=== PATIENT | female | born 1980 | race Caucasian/White ===

== ENCOUNTER → 2017-10-26 13:22 | Outpatient (CLI) | payer OTHER, SELFPAY ==
[2017-10-26 16:02] LABS: Chlamydia Trachomatis by PCR Negative (Negative); Neisserai gonorrhoeae by PCR Negative (Negative); Probe Check PASS; Sample Adequacy Control PASS; Specimen Processing Control PASS
[2017-10-28 14:19] LABS: HPV APTIMA, High Risk Negative (Negative)
== END ==
PROVIDERS: Visit Provider Obstetrics & Gynecology
DX: Z12.4 Encounter for screening for malignant neoplasm of cervix (principal); Z11.3 Encounter for screening for infections with a predominantly sexual mode of transmission
CPT/HCPCS: 87491; 87591; 88175; G0145

== ENCOUNTER → 2017-11-18 08:02 | Outpatient (CLI) | payer OTHER, SELFPAY ==
--- NOTE | 2017-11-18 08:05 | BI_ITS ---
MAMMOGRAPHY - BILATERAL SCREENING REASON FOR EXAM: Female, 37 years old. Routine annual screening examination. PERTINENT HISTORY: Non-contributory. Remote left excisional breast biopsy. TECHNIQUE: Digital bilateral breast teresa (3D mammographic acquisition) in the CC and MLO projections. 2-D mediolateral oblique (MLO) and craniocaudad (CC) views of both breasts were obtained. CAD: Full Field Digital Mammography with Computer Added Detection was performed. COMPARISON: Comparison is made with prior examination dated October 23, 2015. FINDINGS: Breast Composition: The breasts are extremely dense, which lowers the sensitivity of mammography. There are no dominant masses or suspicious calcifications. No other significant abnormalities are identified. There has been no significant change since the prior study. BI/SCREENING MAMM (CAD), BILAT IMPRESSION: Stable bilateral screening mammogram. Yearly follow-up mammogram recommended. (A) ASSESSMENT CATEGORY: BIRADS Category 1: Negative. A letter regarding these results will be sent to the patient by the facility within 30 days. Approximately 10% of breast cancers are not detected by mammography. A normal mammogram should not delay biopsy of a clinically suspicious abnormality. [id number] Electronically Signed: Marvin Zhu MD at 8:58 EDT Tel [phone], Service support ,
== END ==
PROVIDERS: Family Provider Internal Medicine; PCP Internal Medicine; Visit Provider Obstetrics & Gynecology
DX: Z12.31 Encounter for screening mammogram for malignant neoplasm of breast (principal)
CPT/HCPCS: 77063; 77067

== ENCOUNTER → 2019-07-21 13:40 | Outpatient (CLI) | payer OTHER, SELFPAY | PROVIDERS: PCP Internal Medicine; Visit Provider Obstetrics & Gynecology | DX: Z12.4 Encounter for screening for malignant neoplasm of cervix (principal); Z11.3 Encounter for screening for infections with a predominantly sexual mode of transmission ==

== ENCOUNTER → 2020-02-27 | Outpatient (CLI) ==
[2020-03-01 20:08] LABS: HSV 1 By PCR Negative (Negative)
[2020-03-01 21:35] LABS: HSV 2 By PCR Negative (Negative)
== END | disposition home or self-care (01) ==
PROVIDERS: Student in an Organized Health Care Education/Training Program
DX: Z11.3 Encounter for screening for infections with a predominantly sexual mode of transmission (principal)
CPT/HCPCS: 87529

== ENCOUNTER → 2021-09-03 | Outpatient (CLI) | payer BC, SELFPAY ==
[2021-09-10 15:34] LABS: HPV APTIMA, High Risk Negative (Negative)
== END | disposition home or self-care (01) ==
LOC: LABSPEC 13:20
PROVIDERS: PCP Internal Medicine; Visit Provider Obstetrics & Gynecology
DX: Z12.4 Encounter for screening for malignant neoplasm of cervix (principal)
CPT/HCPCS: 87624; 88175; G0145

== ENCOUNTER → 2021-10-04 | Outpatient (CLI) | payer BC, SELFPAY ==
--- NOTE | 2021-10-04 09:15 | BI_ITS ---
MAMMOGRAPHY - BILATERAL SCREENING REASON FOR EXAM: Female, 41 years old. Routine annual screening examination. PERTINENT HISTORY: Non-contributory. Remote left excisional biopsy for fibroadenomas. TECHNIQUE: Digital bilateral breast tali (3D mammographic acquisition) in the CC and MLO projections. 2-D mediolateral oblique (MLO) and craniocaudad (CC) views of both breasts were obtained. CAD: Full Field Digital Mammography with Computer Added Detection was performed. COMPARISON: Screening mammogram from 11/18/2017. FINDINGS: Breast Composition: The breasts are extremely dense, which lowers the sensitivity of mammography. There are no dominant masses or suspicious calcifications. Asymmetry in the left posterior breast, posterior depth, stable since 11/18/2017 and likely a benign finding given temporal stability. No other significant abnormalities are identified. There has been no significant change since the prior study. BI/SCRN MAMM (CAD)W/TALI BILAT IMPRESSION: Stable bilateral screening mammogram. Yearly follow-up mammogram recommended. (A) ASSESSMENT CATEGORY: BIRADS Category 2: Benign. A letter regarding these results will be sent to the patient by the facility within 30 days. Approximately 10% of breast cancers are not detected by mammography. A normal mammogram should not delay biopsy of a clinically suspicious abnormality. [id number] Electronically Signed: Kennedy Moser, at 16:34 EDT ,
== END | disposition home or self-care (01) ==
LOC: OPBI 09:14
PROVIDERS: PCP Internal Medicine; Visit Provider Obstetrics & Gynecology
DX: Z12.31 Encounter for screening mammogram for malignant neoplasm of breast (principal)
CPT/HCPCS: 77063; 77067

== ENCOUNTER → 2022-08-11 | Outpatient (CLI) | payer BC, SELFPAY ==
[2022-08-11 12:38] LABS: Absolute Neutrophil Count 4.7 X10^3/uL (2.0-7.7); Basophil# 0.05 X10^3/uL; Basophil% 0.7 % (0-1); Eosinophil# 0.18 X10^3/uL; Eosinophils% 2.5 % (0-5); Hematocrit 40.5 % (37-47); Hemoglobin 13.3 g/dL (12.0-15.0); Lymphocyte % 26.1 % (19-41); Mean Corp Hgb Conc 32.8 g/dL (32-36); Mean Corpuscular Hgb 30.9 pg (27.0-32.0); Mean Platelet Vol. 10.2 fl (6.2-12.0); Monocyte# 0.43 X10^3/uL; Monocyte% 5.9 % (0-10); NRBC Flagged by Analyzer 0 % (0-5); Neutrophil % 64.5 % (47-70); Platelet Count 286 K/mm3 (150-450); RBC Distribution Width CV 12.2 % (11.6-14.6); RBC Distribution Width SD 42.9 fl (35.1-43.9); Red Blood Count 4.31 M/mm3 (4.2-5.4); White Blood Count 7.3 K/mm3 (4.4-11.0)
[2022-08-11 13:03] LABS: Vitamin B12 397 pg/mL (211-911); Vitamin D,25 Hydroxy 41.7 ng/mL
[2022-08-11 13:09] LABS: ALB/GLOB Ratio 1.3 RATIO (0.9-2.4); AST(SGOT) 18 U/L (15-37); Alanine Aminotransfer ALT/SGPT 18 U/L (13-56); Albumin, Serum 3.8 g/dL (3.2-5.0); Alkaline Phosphatase 46 U/L (45-117); Anion Gap 4 (5-15); BUN 9 mg/dL (7-18); Calcium,Total 8.4 mg/dL (8.5-10.1); Chloride 107 mmol/L (98-107); Cholesterol 160 mg/dL (200); Creatinine, Serum 0.75 mg/dL (0.55-1.02); EST Glomerular Filtration Rate 90 mL/min (>60); Est Glom Filt Rate - Afr Amer 109 mL/min (>60); Free T3 2.6 pg/mL (2.18-3.98); Glucose 90 mg/dL (74-106); High Density Lipoprotein 49 mg/dL; Potassium 3.6 mmol/L (3.5-5.1); Protein, Total 6.8 g/dL (6.4-8.2); Sodium Level 139 mmol/L (136-145); T4 Free Direct 1.01 ng/dL (0.76-1.46); Thyroid Stim Hormone (TSH) 1.64 uIU/mL (0.358-3.74); Triglycerides 47 mg/dL; Very Low Density Lipoprotein 9 mg/dL (5-40)
== END | disposition home or self-care (01) ==
LOC: LAB 12:00
PROVIDERS: PCP Internal Medicine; Visit Provider Internal Medicine
DX: Z00.00 Encounter for general adult medical examination without abnormal findings (principal); F32.A Depression, unspecified; E55.9 Vitamin D deficiency, unspecified; Z13.220 Encounter for screening for lipoid disorders
CPT/HCPCS: 36415; 80053; 80061; 82306; 82607; 84439; 84443; 84481; 85025

== ENCOUNTER → 2023-11-18 | Outpatient (CLI) | payer MEDICAID, SELFPAY ==
[2023-11-18 11:53] LABS: Free T3 3.4 pg/mL (2.18-3.98); T4 Free Direct 1.06 ng/dL (0.76-1.46)
== END | disposition home or self-care (01) ==
LOC: LAB 10:23
PROVIDERS: PCP Internal Medicine; Referring Provider Internal Medicine; Visit Provider Internal Medicine
DX: F32.A Depression, unspecified (principal); F41.9 Anxiety disorder, unspecified
CPT/HCPCS: 36415; 84439; 84443; 84481

== ENCOUNTER → 2024-01-27 | Outpatient (CLI) | payer MEDICAID, SELFPAY ==
--- NOTE | 2024-01-27 14:12 | BI_ITS ---
MAMMOGRAPHY - BILATERAL DIAGNOSTIC REASON FOR EXAM: Female, 43 years old. Palpable lump in the inferior central portion of the left breast. PERTINENT HISTORY: Non-contributory. TECHNIQUE: Digital bilateral breast teresa (3D mammographic acquisition) in the CC and MLO projections. 2-D mediolateral oblique (MLO) and craniocaudad (CC) views of both breasts were obtained. CAD: Full Field Digital Mammography with Computer Added Detection was performed. COMPARISON: Comparison is made with prior study dated October 04, 2021 and November 18, 2017. FINDINGS: Breast Composition: The breasts are extremely dense, which lowers the sensitivity of mammography. There are no dominant masses or suspicious calcifications. No other significant abnormalities are identified. There has been no significant change since the prior study. BI/DIAG MAMM W/CAD, BILAT IMPRESSION: Stable bilateral diagnostic mammogram. With the patient''s history of a palpable lump in the left breast, sonographic correlation is recommended. ASSESSMENT CATEGORY: BIRADS Category 0: Incomplete. Need additional imaging evaluation. A letter regarding these results will be sent to the patient by the facility within 30 days. Approximately 10% of breast cancers are not detected by mammography. A normal mammogram should not delay biopsy of a clinically suspicious abnormality. Electronically Signed: Marvin Zhu MD at 15:17 EDT ,
--- NOTE | 2024-01-27 14:14 | US_ITS ---
STUDY: ULTRASOUND BREAST - LEFT REASON FOR EXAM: Female, 43 years old. Palpable lump left breast. TECHNIQUE: Axial and longitudinal images of the LEFT breast were performed with a high resolution ultrasound transducer. # OF IMAGES: 21 COMPARISON: Comparison is made with prior mammogram dated January 27, 2024 FINDINGS: LEFT Breast: The medial aspect of the left breast was examined with ultrasound. There is a 7 mm x 9 mm x 4 mm well-defined hypoechoic nodule at the 9:00 position breast at 2 cm from nipple. This most likely represents a fibroadenoma. The patient has a history of prior resection of 2 breast fibroadenomas. US/Breast Limited Unilateral IMPRESSION: 7 mm x 9 mm x 4 mm well-defined hypoechoic nodule at 9:00 position breast at 2 cm from nipple. This corresponds to the palpable lump. This most likely represents a fibroadenoma. Biopsy recommended. ASSESSMENT CATEGORY: BIRADS Category 4: Suspicious - Biopsy Should Be Considered. A letter regarding these results will be sent to the patient by the facility within 30 days. Electronically Signed: Marvin Zhu MD at 10:15 EDT ,
== END | disposition home or self-care (01) ==
LOC: OPBI 14:09
PROVIDERS: PCP Internal Medicine; Referring Provider Obstetrics & Gynecology; Visit Provider Obstetrics & Gynecology
DX: N63.25 Unspecified lump in the left breast, overlapping quadrants (principal)
CPT/HCPCS: 77062; 76642; 77066; G0279

== ENCOUNTER 2024-02-10 11:04 | Day surgery (SDC) | payer MEDICAID, SELFPAY ==
--- NOTE | 2024-02-10 | IMM_PTH ---
PATIENT: CHANCE BARNHART LOC: [facility] [place] U#:[id number] AGE/SX: 43/F ROOM: RE02/10/[address]: Dr. Josh Mckinley MD : 1980 BED: DIS: 02/10/2024 SPEC #: [id number] RECD: 02/11/24 12:15 STATUS: FAISAL REQ #: [id number] RAHEL: 02/10/24 00:[address]: Josh Mckinley DEPT: IMMUNOHISTOCHEMISTRY RECD BY: Alphonse Ruiz ENTERED: 02/11/24 12:15 SP TYPE: IMMUNO OTHR DR: Dr. Génesis Christianson MD Tissues: Left breast, NOS Procedures: SMA (add) CALPONIN-1 (add) KI-67 (add) P53 (add) 34BE12 (add) Pankeratin (initial) P40 (add) CD68 (ADD) PHYSICIAN & INSTITUTION [place] [id number] SPECIMEN INFORMATION: Tissue Source: Left breast lump Clinical Info: Left breast lump Specimen Number: [id number] CPT code: 28740,62139w9 METHODOLOGY: Deparaffinized sections of prefer/formalin-fixed tissue or PAP/DQ stained slides are incubated with monoclonal/polyclonal antibodies/oligonucleotide probes. Localization is made via biotin free immunoperoxidase method. Appropriate controls are performed and reacted as expected. Results on target cell population are indicated in the following table: RESULTS: ANTIBODY / CLONE RESULT Block #2 AE1-3 (AE1/AE3/PCK26) positive 34BE12 (34BE12) positive Calponin-1 (NV258X) positive Actin (1A4) positive P40 (BC28) positive P53 (DO-7) negative (wild type pattern) Ki-67 (30-9) positive, low CD68 (KP-1) positive, positive in the area of previous biopsy site These tests were developed and their performance characteristics determined by [facility]. They may not have been cleared or approved by the U.S. Food and Drug Administration. The FDA has determined that such clearance or approval is not necessary. The above immunohistochemical/dualISH markers are ordered by Dr. Tate Kim and reviewed by the Pathologist. INTERPRETATION: Left breast lump, excisional biopsy: Negative for malignancy. Focal fibrosis consistent with previous biopsy site. CARMINA/ 02/12/2024
[2024-02-10 11:35] VITALS: BP 122/99; PULSE 76; RESP 16; TEMP 36.4; O2SAT 100; BMI 21.9
--- NOTE | 2024-02-10 11:35 | PCM.HP.BLA ---
History and Physical Date of Admission: 02/10/24 Intake Vital Signs 11/17/2408:31 02/01/2414:38 Height 5 ft 2 in 5 ft 2 in Weight: 123 lb 121 lb BMI 22.4 22.1 BP 144/86 H 92/65 Blood Pressure Location Lt brachial Lt brachial Position Sitting Sitting Respiration 17 Pulse 79 68 Pulse Source Monitor Monitor Temp 98.6 F Temp Source Temporal Pulse Oximetry (%) 96 100 Oxygen Delivery Method room air room air Intake Visit Reasons: BIRADS 4 Chief Complaint: birads 4 Is patient in pain?: No Allergies No Known Allergies Allergy (Verified 02/02/24 14:40) Medications ?Medication ?Instructions ?Recorded ?Confirmed ?Type multivitamin (Daily Multi-Vitamin 1 tab PO DAILY 05/29/21 02/02/24 History tablet) trazodone 50 mg tablet See Rx Instructions PO QHS PRN 11/18/23 02/02/24 Rx sleep #60 tabs escitalopram oxalate 5 mg tablet 5 mg PO DAILY #60 tabs 01/29/24 02/02/24 Rx (Lexapro) PFSH Surgical History S/P breast lumpectomy Family History (Updated 02/02/24 @ 14:38 by Urszula Rivera) Father Cancer Social History household members: spouse current occupational status: employed Smoking Status: Never smoker alcohol intake: never substance use type: does not use HPI HPI HPI: Patient is a 43-year-old female here with painful left breast mass. She had excision of 2 fibroadenomas in the same area of the breast years ago. She reports his new 1 has been painful for a few weeks. She has not noted any nipple discharge. The painful area is directly beneath the scar from her prior excision ROS General General: No weight change, appetite, fatigue, colon cancer, breast cancer or weakness HEENT HEENT: No difficulty swallowing, eye injury, eye surgery, swollen glands or hoarseness Endo Endocrine: No thyroid disease, diabetes mellitus, thyroid cancer, Hair loss, heat intolerance or cold intolerance Skin Skin: No rash or changing moles Breast Breast: Yes left breast lump, abnormal mammogram and abnormal US; No right breast lump, nipple discharge, breast pain or breast enlargement Musc Musculoskeletal: No back problems, arthritis, rheumatoid arthritis, gout or joint pain Cardio Cardiovascular: No murmur, pacemaker, heart disease, atrial fibrillation, high blood pressure, heart attack, heart stent, palpitations, shortness of breat with exertion or chest pain Psych Psychiatric: Yes depression and anxiety; No hearing voices Resp Respiratory: No shortness of breath, No sleep apnea, No cough, No COPD, No asthma, No emphysema and No wheezing Gastro Gastrointestinal: No abdominal pain, No nausea or vomiting, No diarrhea, No constipation, No blood in stool, No acid reflux, No hemorrhoids, No ulcers, No gallbladder problem and No black,tarry stools Juan Carlos Hematologic: No blood thinners, No blood disorders, No bleeding, No anemia and No blood clots Neuro Neurologic: No system reviewed and no additional complaints, except as documented, No as per HPI, No abnormal gait, No abnormal hearing, No abnormal movements, No abnormal speech, No behavioral changes, No burning sensations, No confusion, No convulsions, No disequilibrium, No dizziness, No localized weakness, No frequent falls, No headache(s), No lack of coordination, No loss of vision, No memory loss, Yes numbness, No other visual disturbances, No radicular pain, No restless legs, No sensory deficit, No syncope, Yes tingling, No tremor(s), No weakness and No other Exam Const General: cooperative Orientation: alert and oriented x3 HENMT Head: normal to inspection Neck Neck: normal visual inspection and full ROM Chest Chest palpation & inspection: normal inspection of the chest Resp Effort & Inspection: normal respiratory effort Auscultation: clear to auscultation bilaterally Cardio Rate: regular rate Rhythm: regular rhythm GI Inspection: non-distended Palpation: soft and nontender Skin General: no rashes or lesions noted Neuro General: patient alert and patient oriented x3 Extrem General: full ROM Psych Appearance: grossly normal Mental Status: mental status grossly normal Assessment and Plan Assessment and Plan (1) Left breast lump: Status: Acute Qualifiers: Breast mass location: lower inner quadrant Qualified Code(s): N63.24 - Unspecified lump in the left breast, lower inner quadrant Plan: The patient has a left breast lump which is painful. It is directly at her incision site from her prior fibroadenoma excision. I discussed excising and performing excisional biopsy as it is painful to palpation. Patient is agreeable. I discussed the risks of bleeding and infection. Patient understands the risks and is willing to proceed. She will be scheduled for excisional biopsy of this breast mass Josh Mckinley MD Pager: [facility] [address] [place] [address], [address] [place] [phone] Office: I have examined the patient and the H&P has been reviewed. There are no clinical changes since date of exam.
--- NOTE | 2024-02-10 11:38 | PCM.PRE.AN2 ---
ASA Classification* ASA Classification ASA Classification: 2 Assessment & Plan Anesthesia* Anesthesia Assessment Anesthesia Assessment: Discussed sedation and/or anesthesia options, risks, benefits, and alternatives with patient/parents/legal guardian/POA. Questions invited. The patient/parents/legal guardian/POA seems to understand and agrees to proceed with anesthesia plan. Reviewed the physical assessment, medical history, allergy history and patient home medications list prior to surgery/procedure/anesthetic and documented any changes. Performed airway and anesthesia risk assessments. Anesthesia Type Anesthesia Type: MAC (see written pre anesthesia record for full assessment) Anesthesia Focused Assessment* Airway Assessment Mouth opens: >3 cm Mallampati Score: II Focused Labs Anesthesia Preop lab: CBC WBC 7.3 K/mm3 (4.4-11.0) 08/11/22 12:04 RBC 4.31 M/mm3 (4.2-5.4) 08/11/22 12:04 Hgb 13.3 g/dL (12.0-15.0) 08/11/22 12:04 Hct 40.5 % (37-47) 08/11/22 12:04 Plt Count 286 K/mm3 (150-450) 08/11/22 12:04 CHEMISTRY Potassium 3.6 mmol/L (3.5-5.1) 08/11/22 12:04 Sodium 139 mmol/L (136-145) 08/11/22 12:04 BUN 9 mg/dL (7-18) 08/11/22 12:04 Creatinine 0.75 mg/dL (0.55-1.02) 08/11/22 12:04 Glucose 90 mg/dL (74-106) 08/11/22 12:04 TSH 1.40 uIU/mL (0.358-3.74) 11/18/23 10:35 COAG Urine Test Negative Negative 05/01/16 12:20 Pre-Assessment Diagnosis/Proposed Procedure Planned Operative Procedure(s): (L) Excision, Breast Mass or Biopsy Anesthesia History 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 When Was Last Pacemaker Check QUESTION #4 FULL TEXT: You/Your Family Experience fever (hyperthermia) with Anesthesia Last Oral Intake Last Oral intake: Last Oral Intake NPO since Meds taken in AM with sips of water? 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 Female Yes 02/04/24 14:28 HX of Motion Sickness Yes 02/04/24 14:28 HX of N/V After Surgery No 02/04/24 14:28 Non-Smoker Yes 02/04/24 14:28 Duration of Surgery greater No 02/04/24 14:28 than 60 minutes Number of Risk Factors 3 02/04/24 14:28 PONV Score Moderate Risk 02/04/24 14:28 Height & Weight Height & Weight: Anesthesia: Height & Weight Height 5 ft 2 in 02/02/24 14:38 Respiratory Assessment Respiratory Assessment - rope twisting machine operator: Respiratory Tract Infection Hx - rope twisting machine operator Hx Respiratory Tract Infection No 02/04/24 14:28 STOP Sleep Apnea STOP Sleep Apnea - rope twisting machine operator: STOP Sleep Apnea - rope twisting machine operator Hx Hypertension No 02/04/24 14:28 Hx Sleep Apnea No 02/04/24 14:28 CPAP No 05/01/16 14:47 BIPAP Do you snore loudly (louder No 02/04/24 14:28 than talking or can be heard Do you often feel tired/ No 02/04/24 14:28 fatigued/ sleepy during daytime? Has anyone observed you stop No 02/04/24 14:28 breathing during sleep? STOP Results Negative 02/04/24 14:28 QUESTION #5 FULL TEXT : Do you snore loudly (louder than talking or can be heard through closed doors)? 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 Specify any problems Hx of Preganancy in last 3 N/A 02/04/24 14:28 Months Nurse Filling Out Transfusion NBUCHER 02/04/24 14:28 & Questions: Date: 02/04/24 02/04/24 14:28 Time: 14:29 02/04/24 14:28 Patient unable to answer at this time (ie. confused, unrespo /Reproduction History /Reproductive History - rope twisting machine operator: /Reproductive Hx- rope twisting machine operator Hx Now No 02/04/24 14:28 Gestational Age (in weeks): EDC: Hx Hx Para Hx Section SAB No 02/04/24 14:28 Active Medications Active Medications: Current Medications Generic Name Dose Route Start Last Admin Trade Name Freq PRN Reason Stop Dose Admin Cefazolin Sodium 2 gm/ Sodium 110 mls @ 150 mls/hr 02/10/24 13:00 Chloride IV 02/10/24 13:43 PREOP ONE Lactated Ringer's 1,000 mls @ 15 mls/hr 02/10/24 11:15 IV .Q48H DARION PFSH Medical History Loss of hearing Wears contact lenses Wears glasses Anxiety Migraine headache Non-smoker Home Medications ?Medication ?Instructions ?Recorded ?Last Taken ?Type multivitamin (Daily Multi-Vitamin 1 tab PO DAILY 05/29/21 Unknown History tablet) escitalopram oxalate 5 mg tablet 5 mg PO DAILY #60 tabs 02/03/24 Unknown Rx (Lexapro) Allergy/AdvReac Type Severity Reaction Status Date / Time No Known Allergies Allergy Verified 02/04/24 14:27 Family History Father Cancer Surgical History S/P breast lumpectomy Social History household members: spouse current occupational status: employed Smoking Status: Never smoker alcohol intake: never substance use type: does not use Review of Systems (Anesthesia) ROS Narrative System reviewed and no additional complaints, except as documented.
[2024-02-10 11:39] LABS: Internal QC Validated? YES +Cl - CLEAR BKGD; Pregnancy, Urine Negative Negative; Record Kit Lot#,Urine Preg HCG0000772476
[2024-02-10] MEDS: Lactated Ringers 1,000 ML 15 ML IV (11:39)
[2024-02-10] MEDS: Cefazolin 2 GM in 0.9% Normal Saline (100mL Bag) 100 ML IV (11:59)
[2024-02-10] MEDS: Bupivacaine Mpf 0.5% 30 ML VIAL (12:10)
[2024-02-10 12:35] VITALS: BP 122/99; BP 126/71; PULSE 61; PULSE 63; RESP 14; RESP 18; TEMP 36.4; O2SAT 92; O2SAT 98
--- NOTE | 2024-02-10 12:35 | PCM.POST.ANE ---
Anesthesia: Postop Eval I Current Vital Signs Temperature: 97.6 F Pulse Rate: 63 Blood Pressure: 126/71 Respiratory Rate: 18 Pulse Ox: 98 Assessment Airway patent: Yes Spontaneous unlabored respirations: Yes nausea: No Vomiting: No Anesthesia Complication: No Fluid Hydration Crystalloid volume administer (ml): 500 Total IV fluid infused: 500 Progress Note Anesthesia document: Postop Eval 1 completed: Yes
--- NOTE | 2024-02-10 12:38 | OP.PCM_ITS ---
Report of Operation Date of Procedure: 02/10/24 Pre-Operative Diagnosis: Left breast mass Post-Operative Diagnosis: Same Surgery/Procedure Performed:: Excisional biopsy of left breast mass Type of Anesthesia: General/Regional Specimen's removed: Left breast mass Estimated Blood Loss (mL): 1 Description of Procedure: Patient was brought back to the operating room and anesthesia was induced. The left breast was prepped and draped in usual sterile fashion. The mass was palpable just below the old incision. The old incision was injected with local anesthetic and excised using an elliptical incision. Next flaps were raised on either side using electrocautery and the mass was identified and removed. The cavity was irrigated and suctioned dry. The skin was closed with interrupted 4- 0 Monocryl as well as a running 4-0 Monocryl. After the skin was closed an ultrasound was used to scan the area and there were no further masses. Dermabond was applied. Patient was woken and taken to PACU. Admit VTE Documentation VTE Mechan Device Prophylaxis: SCD's
[2024-02-10 12:40] VITALS: BP 112/66; BP 122/99; PULSE 63; RESP 16; O2SAT 99
--- NOTE | 2024-02-10 12:40 | EX.PCM.DISCH ---
Discharge Instructions Procedure Breast Surgery Diet Discharge Diet: No restrictions Activity Discharge Activity: May Drive May shower in (days): 1 Weight Bearing Status: Weight bearing as tolerated Additional Activity Instructions:: Use ibuprofen and Tylenol for pain control Dressing / Incision Call your doctor if your incision/area has: Continuous Slow Oozing, Sudden Increased Bleeding, Increased Pain/ Swelling, Increased Redness, Foul Smelling Discharge and Swelling at the incision site Call your doctor if you observe: Fever of 101 or Higher Suture Line Care: Avoid Pulling/Pushing and Avoid Pinching/Bending Cleanse incision/area with: Soap & Water Follow Up Care Please Follow Up With: Josh Mckinley MD When: Please call to schedule 2 week follow up appointment. [phone] Test Results: Test results from this visit will be discussed in further detail at your follow-up appointment, if applicable. Discharge Plan Admission Attending Provider: Josh Mckinley Primary Care Provider: Génesis Christianson Instructions Print Language: Hebrew Discharge Orders/Prescriptions Prescriptions: No Action multivitamin [Daily Multi-Vitamin] Tablet 1 tab PO DAILY escitalopram oxalate [Lexapro] 5 mg tablet 5 mg PO DAILY Qty: 60 1RF Referrals / Follow Up: Génesis Christianson MD [Primary Care Provider] - Disposition Disposition (needs filled in before D/C Order can be placed): Home, Self Care
[2024-02-10 12:45] VITALS: BP 105/64; BP 122/99; PULSE 61; RESP 16; O2SAT 93
--- NOTE | 2024-02-10 12:45 | POSTOPAN2_ITS ---
Anesthesia Postop Eval I Sum Postop Eval Completion status Anesthesia document: Postop Eval 1 completed: Yes Anesthesia Postop Eval I Summary Anesthesia Postop Eval I Summary: Anesthesia Postop Eval I: Assessment Summary Airway patent Yes 02/10/24 12:35 NURSE QUALITY.CSIR Spontaneous unlabored Yes 02/10/24 12:35 NURSE QUALITY.CSIR respirations Mental status nausea No 02/10/24 12:35 NURSE QUALITY.CSIR Vomiting No 02/10/24 12:35 NURSE QUALITY.CSIR Anesthesia Postop Eval I: Fluid Summary Crystalloid volume administer 500 02/10/24 12:35 NURSE QUALITY.CSIR (ml) Colloids volume administered ( ml) Blood Product volume administered (ml) Total IV fluid infused 500 02/10/24 12:35 NURSE QUALITY.CSIR Anesthesia Postop Eval I: Summary Notes Anesthesia Complication No 02/10/24 12:35 NURSE QUALITY.CSIR Anesthesia Complication Comment: Post-operative progress note Anesthesia: Postop Eval II Evaluation Mental status: Awake Pain Level: 0 nausea: No Vomiting: No
--- NOTE | 2024-02-10 12:45 | PCM.POSTANE2 ---
Anesthesia Postop Eval I Sum Postop Eval Completion status Anesthesia document: Postop Eval 1 completed: Yes Anesthesia Postop Eval I Summary Anesthesia Postop Eval I Summary: Anesthesia Postop Eval I: Assessment Summary Airway patent Yes 02/10/24 12:35 PATIENT EXPERIENCE COORDINATOR.CSIR Spontaneous unlabored Yes 02/10/24 12:35 PATIENT EXPERIENCE COORDINATOR.CSIR respirations Mental status nausea No 02/10/24 12:35 PATIENT EXPERIENCE COORDINATOR.CSIR Vomiting No 02/10/24 12:35 PATIENT EXPERIENCE COORDINATOR.CSIR Anesthesia Postop Eval I: Fluid Summary Crystalloid volume administer 500 02/10/24 12:35 PATIENT EXPERIENCE COORDINATOR.CSIR (ml) Colloids volume administered ( ml) Blood Product volume administered (ml) Total IV fluid infused 500 02/10/24 12:35 PATIENT EXPERIENCE COORDINATOR.CSIR Anesthesia Postop Eval I: Summary Notes Anesthesia Complication No 02/10/24 12:35 PATIENT EXPERIENCE COORDINATOR.CSIR Anesthesia Complication Comment: Post-operative progress note Anesthesia: Postop Eval II Evaluation Mental status: Awake Pain Level: 0 nausea: No Vomiting: No
[2024-02-10 13:00] VITALS: BP 101/66; BP 122/99; PULSE 60; RESP 16; TEMP 36.4; O2SAT 97
--- NOTE | 2024-02-10 13:00 | BRBX_PTH ---
PATIENT: CHANCE BARNHART LOC: [facility] [place] U#:[id number] AGE/SX: 43/F ROOM: RE02/10/[address]: Dr. Josh Mckinley MD : 1980 BED: DIS: 02/10/2024 SPEC #: [id number] RECD: 02/10/24 13:13 STATUS: FAISAL СЕРГЕЙ #: [id number] RAHEL: 02/10/24 13:[address]: Josh Mckinley DEPT: SURGICAL PATHOLOGY RECD BY: Lg Watkins ENTERED: 02/10/24 13:59 SP TYPE: BREAST BX OTHR DR: Dr. Génesis Christianson MD Tissues: Left breast, NOS Procedures: Surgery Specimen Level IV HEADER OPERATION: Excision, breast excisional biopsy PRE-OP DIAGNOSIS: Left breast lump TISSUE SUBMITTED: Left breast lump MICROSCOPIC DIAGNOSIS Left breast lump, excisional biopsy: Florid intraductal hyperplasia with focal cytologic atypia. Fibrocystic change and intraductal papilloma. Focal benign histiocytic proliferation. Focal microcalcifications. See comment. 02/11/2024 COMMENT Immunohistochemistry ([id number]) supports the above diagnosis. Case has been reviewed in consultation with Dr. Cote who concurs with the above diagnosis. IDC:[email or web address] MICROSCOPIC DESCRIPTION Slides are reviewed. GROSS DESCRIPTION Received in fixative is one container labeled with the patient's name and designated Left breast lump. The specimen consists of two variable sized pieces of duggan-yellow fibroadipose tissue measuring 2.2 x 1.5 x 1.0cm and 1.5 x 1.0 x 0.5cm. A small fragment of adipose tissue is also noted measuring 0.5 x 0.2 x 0.1cm. The specimen is not oriented. Largest piece is serially sectioned and smaller piece is bisected. Sections reveal focal [id number] adipose cut surfaces. The entire specimen is submitted in three cassettes. 02/10/2024 TC:? CPT:47304
[2024-02-10 13:24] VITALS: BP 122/99
== END 2024-02-10 13:28 | disposition home or self-care (01) ==
LOC: SDC 11:04 → AC 11:05
PROVIDERS: Anesthesiology; PCP Internal Medicine; Referring Provider Surgery; Visit Provider Surgery
PROC: (CPT 19120; principal; 2024-02-10 12:45)
DX: D24.2 Benign neoplasm of left breast (principal); R92.0 Mammographic microcalcification found on diagnostic imaging of breast; F41.9 Anxiety disorder, unspecified; F32.A Depression, unspecified; Z79.899 Other long term (current) drug therapy
CPT/HCPCS: 19120; 00400; 81025; 88305; 88341; 88342; J7120; A4216; J2405